=== PATIENT | male | born 1975 | race Caucasian/White ===

== ENCOUNTER 2023-06-21 08:30 | Outpatient (CLI) | payer SELFPAY ==
--- NOTE | 2023-06-21 | ECHOL_ITS ---
Patient Info Name: Timmy Petit Age: 47 years : 1975 Gender: Male Ht: 70 in Wt: 192 lbs BSA: 2.09 m2 HR: 64 bpm BP: 139 / 94 mmHg Heart Rhythm: Sinus Rhythm Technical Quality: Good Exam Date: 06/21/2023 8:59 AM Exam Location: Echo Lab Patient Status: Outpatient Admit Date: 06/21/2023 Staff Ordering Physician: Yoshi Vargas MD [employer] Black Trainer: Dixon Forrest RDCS Attending Provider: Yoshi Vargas MD Referring Physician: Alicia LEIJA; Exam Type: CA echo limited Study Info Indications - hx of ca stent placement Limited two-dimensional transthoracic echocardiogram is performed. Summary 1. Limited 2D echocardiogram performed without Doppler. 2. Normal left ventricular size and overall normal contractility ejection fraction 55-60. 3. Akinesis of the mid to basal inferior segment. 4. Normal appearing valves. Left Ventricle Left ventricular chamber dimension is normal. Left ventricular systolic function is normal, estimated at 55-60%. Right Ventricle Right ventricular chamber dimension is normal. Left Atria Left atrial chamber dimension is mildly enlarged. Right Atria Right atrial chamber dimension is normal. Aortic Valve The aortic valve is normal. Pulmonic Valve The pulmonic valve is normal. Mitral Valve The mitral valve has normal leaflets. Tricuspid Valve The tricuspid valve leaflets are normal. Pericardium/Pleural The pericardium appears normal. Aorta The aortic root size at the sinus of Valsalva is normal. Left Ventricular Outflow Tract Name Value Normal LVOT 2D LVOT Diameter 2.1 cm Aortic Valve Name Value Normal AV Regurgitation 2D LVOT Area 3.6 cm2 Ventricles Name Value Normal LV Dimensions 2D/MM IVS Diastolic Thickness (2D) 1.1 cm 0.6-1.0 LVID Diastole (2D) 4.8 cm 4.2-5.8 LVIW Diastolic Thickness (2D) 1.1 cm 0.6-1.0 LVID Systole (2D) 3.2 cm 2.5-4.0 LVOT Diameter 2.1 cm LV Mass (2D Cubed) 187.72 g 88.00-224.00 LV Mass Index (2D Cubed) 90 g/m2 49-115 Relative Wall Thickness (2D) 0.44 LV Fractional Shortening/Ejection Fraction 2D/MM LV Fractional Shortening (2D) 33 % 25-43 LV EF (2D Teicholz) 62 % 52-72 LV Diastolic Volume (4C MOD) 106 ml LV EF (4C MOD) 61 % LV Diastolic Volume (2C MOD) 134 ml LV EF (2C MOD) 65 % LV Diastolic Volume (BP MOD) 121 ml 62-150 LV Diastolic Volume Inde
--- NOTE | 2023-06-21 | EST_ITS ---
Patient Info Name: Timmy Petit Age: 47 years : 1975 Gender: Male Ht: 70 in Wt: 190 lbs BSA: 2.08 m2 HR: 59 bpm BP: 129 / 86 mmHg Heart Rhythm: Sinus Rhythm Exam Date: 06/21/2023 10:08 AM Exam Location: Echo Lab Patient Status: Outpatient Admit Date: 06/21/2023 Staff Ordering Physician: Yoshi Vargas MD Attending Provider: Yoshi Vargas MD Exercise Technologist: Khadra Howard CT Nurse: Lilliana Allen APN Exam Type: CA stress test treadmill Study Info Indications - hx of stent placement A treadmill exercise stress test was performed. Summary 1. Normal sinus rhythm - normal ECG. 2. No abnormal ST/T wave changes with exercise. 3. None. 4. Graded exercise test to 85% of age predicted maximum heart rate which is clinically and electrocardiographically negative. 5. Normal functional capacity. Protocol: Crow Stress ECG Details Stage: REST Duration (min): 0 min : 56 sec Speed (mph): 0.0 Grade (%): 0 HR (bpm): 57 SBP (mmHg): 129 DBP (mmHg): 86 METS: --- Stage: REST Duration (min): 4 min : 14 sec Speed (mph): 0.0 Grade (%): 0 HR (bpm): 61 SBP (mmHg): 129 DBP (mmHg): 86 METS: --- Stage: STAGE 1 Duration (min): 1 min : 0 sec Speed (mph): 1.7 Grade (%): 10 HR (bpm): 82 SBP (mmHg): 129 DBP (mmHg): 86 METS: --- Stage: STAGE 1 Duration (min): 2 min : 0 sec Speed (mph): 1.7 Grade (%): 10 HR (bpm): 84 SBP (mmHg): 129 DBP (mmHg): 86 METS: --- Stage: STAGE 1 Duration (min): 3 min : 0 sec Speed (mph): 1.7 Grade (%): 10 HR (bpm): 89 SBP (mmHg): 155 DBP (mmHg): 84 METS: --- Stage: STAGE 2 Duration (min): 1 min : 0 sec Speed (mph): 2.5 Grade (%): 12 HR (bpm): 96 SBP (mmHg): 155 DBP (mmHg): 84 METS: --- Stage: STAGE 2 Duration (min): 2 min : 0 sec Speed (mph): 2.5 Grade (%): 12 HR (bpm): 102 SBP (mmHg): 167 DBP (mmHg): 87 METS: --- Stage: STAGE 2 Duration (min): 3 min : 0 sec Speed (mph): 2.5 Grade (%): 12 HR (bpm): 107 SBP (mmHg): 167 DBP (mmHg): 87 METS: --- Stage: STAGE 3 Duration (min): 1 min : 0 sec Speed (mph): 3.4 Grade (%): 14 HR (bpm): 111 SBP (mmHg): 164 DBP (mmHg): 85 METS: --- Stage: STAGE 3 Duration (min): 2 min : 0 sec Speed (mph): 3.4 Grade (%): 14 HR (bpm): 123 SBP (mmHg): 164 DBP (mmHg): 85 METS: --- Stage: STAGE 3 Duration (min): 3 min : 0 sec Speed (mph): 3.4 Grade (%): 14 HR (bpm): 130 SBP (mmHg): 164 DBP (mmHg): 85 METS: --- Stage: STAGE 4 Duration (min): 0 min : 36 sec Speed (mph): 4.2 Grade (%): 16 HR (bpm): 135 SBP (mmHg): 105 DBP (mmHg): 85 METS: --- Stage: RECOVERY Duration (min): 0 min : 23 sec Speed (mph): 1.5 Grade (%): 0 HR (bpm): 131 SBP (mmHg): 105 DBP (mmHg): 85 METS: --- Stage: RECOVERY Duration (min):
== END 2023-06-21 08:31 | disposition home or self-care (01) ==
PROVIDERS: Visit Provider Specialist
DX: Z95.5 Presence of coronary angioplasty implant and graft (principal)
CPT/HCPCS: 93017; 93308